=== PATIENT | male | born 1945 | race Caucasian/White ===

== ENCOUNTER 2017-05-07 17:14 | Inpatient (IN) | payer OTHER ==
[~2017-05-07] VITALS: Ht 175.3 cm; Wt 101.5 kg
[~2017-05-07 17:14] MED LIST: ALL DAY ALLERGY10 MG; BENTYL10 MG PO; CETIRIZINE HCL10 M2 PO; CYANOCOBALAM1000 MCG PO; CYMBALTA60 MG PO; Coumadin,Jantoven PO; DOCUSATE SODIU100 MG PO; ENDOCET 5-3251 EACH PO; FISH OIL-VIT D1 EACH PO; FLOMAX0.4 MG PO; FORADIL AEROLI12 MCG IH; FORADIL12 MCG IH; FUROSEMIDE40 MG PO; GABAPENTIN300 MG; GABAPENTIN300 MG PO; HEARTBURN150 MG; LASIX20 MG PO; LEVOTHYROXINE50 MCG PO; LO-DOSE ASPIRIN81 M1 PO; LOPRESSOR100 M1 PO; LOSARTAN POTAS100 MG PO; LOVENOX100 MG/1 M SC; Levaquin PO; METFORMIN HCL500 MG PO; METOPROLOL TART50 MG PO; MOBIC7.5 MG; MYSOLINE50 MG PO; NOVOLOG PE100 UNITS/ SC; PLAVIX75 MG PO; PROAIR HFA8.5 GM IH; PROTONIX40 MG PO; SENNA8.6 MG PO; SYMBICORT60 INHALAT IH; VITAMIN D2000 INTUN PO; ZOFRAN4 MG PO; Zantac PO; ZyrTEC PO
[2017-05-07 18:16] LABS: BASOPHIL COUNT 0.1 K/uL (0-0.1); EOSINOPHIL (%) 2.1 % (0-5); EOSINOPHIL COUNT 0.2 K/uL (0-0.3); IMMATURE GRANULOCYTE (%) 0.4 % (0.0-0.7); INSTRUMENT ABS NEUTROPHIL CT 7.6 K/uL; LYMPHOCYTE COUNT 2.1 K/uL (1.0-2.8); MCH 30.2 PG (29.0-34.0); MCV 91.4 FL (86-99); MEAN PLAT.VOLUME 10.9 uM^3 (9.0-12.4); MONOCYTE (%) 9.3 % (3-12); NEUTROPHIL (%) 69.1 % (45-76); NEUTROPHIL COUNT 7.6 K/uL (1.8-6.4); PLATELET COUNT 196 K/uL (156-360); RBC DIS.WIDTH-CV 15.7 % (11.8-14.6); RBC DIS.WIDTH-SD 52.2 % (39-53); RED BLOOD COUNT 5.14 M/uL (4.00-5.50)
[2017-05-07 18:22] LABS: PROTHROMBIN TIME 11.3 SEC (10.2-12.9)
[2017-05-07 18:23] LABS: CHLORIDE 106 mEq/L (99-109); POTASSIUM 4.4 mEq/L (3.7-5.4); SODIUM 140 mEq/L (136-147)
[2017-05-07 18:24] LABS: MAGNESIUM 1.8 mg/dL (1.3-2.7)
[2017-05-07 18:25] LABS: GLUCOSE 126 mg/dL (70-99)
[2017-05-07 18:27] LABS: ANION GAP 6 MEQ/L (2-14)
[2017-05-07 18:29] LABS: GFR ESTIMATE (CALCULATED) > 59 mL/min/
[2017-05-07 18:30] LABS: UREA NITROGEN (BUN) 14 mg/dL (9-23)
[2017-05-07 18:36] LABS: TROP-I INTERPRETATION NEGATIVE; TROPONIN-I 0.01 ng/mL (0.0-0.30)
[2017-05-07] MEDS ORDERED: VOLTAREN 1% GE100 GM TP (21:52)
[2017-05-07] MEDS ORDERED: SENNA PLUS TAB1 EACH PO (21:53)
[2017-05-07] MEDS ORDERED: FLONASE16 G1 BOTH NARES (21:54)
[2017-05-07] MEDS ORDERED: ARICEPT10 MG PO (21:54)
[2017-05-07] MEDS ORDERED: GABAPENTIN300 MG PO ×2 (21:55)
[2017-05-07] MEDS ORDERED: ANECREAM30 GM TP (21:56)
[2017-05-07] MEDS ORDERED: MIRALAX17 GM PO (21:57)
[2017-05-07] MEDS ORDERED: FINASTERIDE5 MG PO (21:57)
[2017-05-07] MEDS ORDERED: TYLENOL REGULA325 MG PO (21:58)
[2017-05-07] MEDS ORDERED: TRIAMCINOLONE A15 GM TP (21:58)
[2017-05-07] MEDS ORDERED: BACTRIM,SEPT1 TABLET PO (22:00)
[2017-05-08] VITALS (8 sets, daily range): BP systolic 133–210; BP diastolic 72–88
[2017-05-08 01:04] LABS: TROP-I INTERPRETATION NEGATIVE; TROPONIN-I 0.01 ng/mL (0.0-0.30)
[2017-05-08 02:23] LABS: HDL CHOLESTEROL 36 MG/DL (Desirable>=40); LDL CHOLESTEROL 143 mg/dL (Desirable<100); NON-HDL CHOLESTEROL 213 mg/dL (Desirable<160); TOTAL CHOLESTEROL 249 mg/dL (Desirable<200); TRIGLYCERIDES 349 MG/DL (Normal: <150)
[2017-05-08 07:13] LABS: TROP-I INTERPRETATION NEGATIVE; TROPONIN-I 0.02 ng/mL (0.0-0.30)
[2017-05-08 07:34] LABS: Estimated Average Glucose 154 mg/dL (70-123)
[2017-05-08 13:14] LABS: POINT-OF-CARE METER ID UU14188625
[2017-05-08 17:50] LABS: POINT-OF-CARE METER ID UU14188625
[2017-05-08 21:10] LABS: POINT-OF-CARE METER ID UU14188625
[2017-05-09 02:25] VITALS: BP 218/101
[2017-05-09 03:38] VITALS: BP 191/92
[2017-05-09 07:30] VITALS: BP 170/62
[2017-05-09 08:03] LABS: ADD MIUA? YES; BILIRUBIN NEGATIVE; BLOOD LARGE; COLOR YELLOW ((YELLOW)); GLUCOSE (STRIP) 150; KETONES NEGATIVE; LEUKOCYTES NEGATIVE; NITRITE NEGATIVE; PROTEIN (STRIP) 100; SPECIFIC GRAVITY 1.011 (1.000-1.030)
[2017-05-09 08:09] VITALS: BP 170/62
[2017-05-09 08:38] LABS: BACTERIA RARE /HPF; CALCIUM OXALATE CRYSTALS 3+ /HPF; EPITHELIAL CELLS NONE SEEN /HPF; MUCUS TRACE /LPF; RED BLOOD CELLS TNTC /HPF (0-5); UCUL ADDED? YES
[2017-05-09 09:45] LABS: POINT-OF-CARE METER ID UU13113717
[2017-05-09 11:27] VITALS: BP 178/60
[2017-05-09 12:35] LABS: POINT-OF-CARE METER ID UU14188625
[2017-05-09 15:47] VITALS: BP 152/80
[2017-05-09 17:13] LABS: POINT-OF-CARE METER ID UU14188625
[2017-05-09 22:28] LABS: POINT-OF-CARE METER ID UU13113717
[2017-05-10 04:13] VITALS: BP 110/60
[2017-05-10 07:37] LABS: POINT-OF-CARE METER ID UU14188625
[2017-05-10 07:58] VITALS: BP 163/70
[2017-05-10 11:22] VITALS: BP 172/79; BP 180/67
[2017-05-10 12:09] LABS: POINT-OF-CARE METER ID UU14188625
[2017-05-10 15:11] VITALS: BP 138/90
[2017-05-10 16:27] LABS: POINT-OF-CARE METER ID UU13113717
[2017-05-10 20:05] VITALS: BP 138/89
[2017-05-10 21:02] LABS: POINT-OF-CARE METER ID UU13113717
[2017-05-11 00:16] VITALS: BP 152/79
[2017-05-11 03:52] VITALS: BP 158/79
[2017-05-11 07:48] VITALS: BP 208/77
[2017-05-11 10:08] VITALS: BP 158/62
[2017-05-11 16:52] LABS: POINT-OF-CARE METER ID UU13113717
[2017-05-11 17:38] VITALS: BP 158/90
[2017-05-12 07:13] VITALS: BP 180/88
[2017-05-12 08:03] LABS: POINT-OF-CARE METER ID UU13113717
[2017-05-12 10:47] LABS: HEMATOCRIT 50.7 % (38.0-50.0); MCH 31.7 PG (29.0-34.0); MCHC 33.7 G/DL (30.0-36.0); MCV 94.1 FL (86-99); MEAN PLAT.VOLUME 10.6 uM^3 (9.0-12.4); PLATELET COUNT 192 K/uL (156-360); RBC DIS.WIDTH-CV 16.3 % (11.8-14.6); RBC DIS.WIDTH-SD 54.7 % (39-53); RED BLOOD COUNT 5.39 M/uL (4.00-5.50); WHITE BLOOD COUNT 12.6 K/uL (4.1-10.2)
[2017-05-12 11:17] LABS: ANION GAP 10 MEQ/L (2-14); CHLORIDE 104 MEQ/L (99-109); GFR ESTIMATE (CALCULATED) > 59 mL/min/; GLUCOSE 145 mg/dL (70-99); POTASSIUM 4.2 MEQ/L (3.7-5.4); SAMPLE HEMOLYSIS CHECK 0; SAMPLE ICTERIC CHECK 0; SAMPLE LIPEMIA CHECK 0; SODIUM 142 MEQ/L (136-147); UREA NITROGEN (BUN) 17 mg/dL (9-23)
[2017-05-12 16:05] VITALS: BP 137/80
[2017-05-12 17:43] LABS: POINT-OF-CARE METER ID UU14188625
[2017-05-12 21:40] VITALS: BP 161/77
[2017-05-12 23:42] VITALS: BP 180/73
[2017-05-13 04:00] VITALS: BP 176/72
[2017-05-13 08:14] LABS: POINT-OF-CARE METER ID UU14188625
[2017-05-13 08:19] VITALS: BP 158/60
[2017-05-13 12:04] LABS: POINT-OF-CARE METER ID UU14188625
[2017-05-13 23:48] VITALS: BP 133/71
[2017-05-14 06:06] LABS: BASOPHIL COUNT 0.1 K/uL (0-0.1); EOSINOPHIL (%) 1.8 % (0-5); EOSINOPHIL COUNT 0.3 K/uL (0-0.3); IMMATURE GRANULOCYTE (%) 0.5 % (0.0-0.7); IMMATURE GRANULOCYTE COUNT 0.1 K/uL; INSTRUMENT ABS NEUTROPHIL CT 10.4 K/uL; LYMPHOCYTE COUNT 1.6 K/uL (1.0-2.8); MCH 31.4 PG (29.0-34.0); MCHC 34.2 G/DL (30.0-36.0); MCV 91.7 FL (86-99); MONOCYTE (%) 9.4 % (3-12); MONOCYTE COUNT 1.3 K/uL (0-0.8); NEUTROPHIL (%) 76.3 % (45-76); NEUTROPHIL COUNT 10.4 K/uL (1.8-6.4); RBC DIS.WIDTH-CV 16.3 % (11.8-14.6); RBC DIS.WIDTH-SD 54.1 % (39-53); RED BLOOD COUNT 5.45 M/uL (4.00-5.50); WHITE BLOOD COUNT 13.7 K/uL (4.1-10.2)
[2017-05-14 06:43] LABS: ANION GAP 14 MEQ/L (2-14); CHLORIDE 107 MEQ/L (99-109); GFR ESTIMATE (CALCULATED) > 59 mL/min/; GLUCOSE 156 mg/dL (70-99); POTASSIUM 4.3 MEQ/L (3.7-5.4); SAMPLE HEMOLYSIS CHECK 0; SAMPLE ICTERIC CHECK 0; SAMPLE LIPEMIA CHECK 0; SODIUM 141 MEQ/L (136-147); UREA NITROGEN (BUN) 25 mg/dL (9-23)
[2017-05-14 07:17] LABS: MEAN PLAT.VOLUME 11.5 uM^3 (9.0-12.4); PLAT.SUFFICIENCY ADEQUATE; PLATELET COUNT 183 K/uL (156-360)
[2017-05-14 07:53] VITALS: BP 183/88
[2017-05-14 10:49] LABS: ADD MIUA? YES; BILIRUBIN NEGATIVE; BLOOD MODERATE; COLOR AMBER ((YELLOW)); GLUCOSE (STRIP) 50; KETONES 20; LEUKOCYTES MODERATE; NITRITE NEGATIVE; PROTEIN (STRIP) 30; SPECIFIC GRAVITY 1.025 (1.000-1.030); UROBILINOGEN 0.2 MG/DL (0.2-1.0)
[2017-05-14 11:57] LABS: POINT-OF-CARE METER ID UU14188625
[2017-05-14 12:02] LABS: RED BLOOD CELLS 15-20 /HPF (0-5)
[2017-05-14 12:03] LABS: BACTERIA 1+ /HPF; CASTS NONE SEEN /LPF; EPITHELIAL CELLS 1+ /HPF; MUCUS 3+ /LPF; UCUL ADDED? YES; WHITE BLOOD CELLS 40-50 /HPF (0-5)
[2017-05-14 12:04] LABS: CRYSTALS NONE SEEN
[2017-05-14 16:00] VITALS: BP 168/71
[2017-05-14 17:10] LABS: POINT-OF-CARE METER ID UU14188625
[2017-05-15 00:53] VITALS: BP 190/78
[2017-05-15 07:07] LABS: ANION GAP 12 MEQ/L (2-14); CHLORIDE 112 MEQ/L (99-109); POTASSIUM 4.1 MEQ/L (3.7-5.4); SAMPLE HEMOLYSIS CHECK 0; SAMPLE ICTERIC CHECK 0; SAMPLE LIPEMIA CHECK 0; SODIUM 146 MEQ/L (136-147)
[2017-05-15 07:08] LABS: POINT-OF-CARE METER ID UU13113717
[2017-05-15 07:10] LABS: EOSINOPHIL (%) 0.9 % (0-5); EOSINOPHIL COUNT 0.1 K/uL (0-0.3); HEMATOCRIT 46.5 % (38.0-50.0); IMMATURE GRANULOCYTE (%) 0.6 % (0.0-0.7); IMMATURE GRANULOCYTE COUNT 0.1 K/uL; INSTRUMENT ABS NEUTROPHIL CT 10.2 K/uL; LYMPHOCYTE COUNT 1.7 K/uL (1.0-2.8); MCH 31.9 PG (29.0-34.0); MCHC 34.4 G/DL (30.0-36.0); MCV 92.6 FL (86-99); MEAN PLAT.VOLUME 11.6 uM^3 (9.0-12.4); MONOCYTE (%) 12.3 % (3-12); MONOCYTE COUNT 1.7 K/uL (0-0.8); NEUTROPHIL (%) 73.4 % (45-76); NEUTROPHIL COUNT 10.2 K/uL (1.8-6.4); PLATELET COUNT 223 K/uL (156-360); RBC DIS.WIDTH-CV 16.1 % (11.8-14.6); RBC DIS.WIDTH-SD 54.4 % (39-53); RED BLOOD COUNT 5.02 M/uL (4.00-5.50); WHITE BLOOD COUNT 13.8 K/uL (4.1-10.2)
[2017-05-15 07:12] LABS: GFR ESTIMATE (CALCULATED) > 59 mL/min/; GLUCOSE 164 mg/dL (70-99); UREA NITROGEN (BUN) 33 mg/dL (9-23)
[2017-05-15 07:38] VITALS: BP 141/73
[2017-05-15 07:45] VITALS: BP 142/68
[2017-05-15 11:12] VITALS: BP 144/66
[2017-05-15 12:27] LABS: POINT-OF-CARE METER ID UU13113717
[2017-05-15 12:53] LABS: BASE EXCESS 3.5 mEq/L (-3 to +3); BICARBONATE 26.8 mEq/L (22-26); CARBOXY HGB 2.7 % (0-5); METHEMOGLOBIN 1.5 % (0-1.5); PCO2 36 mm Hg (35-45); PO2 75 mm Hg (80-100); pH 7.48 (7.35-7.45)
[2017-05-15 12:54] LABS: COMMENTS - BLOOD GASES C+; DEVICE RA; MECHANICAL RATE 18 resp/min; SITE LR
[2017-05-15 16:38] VITALS: BP 175/71
[2017-05-15 17:23] LABS: POINT-OF-CARE METER ID UU13113717
[2017-05-16 00:47] VITALS: BP 176/75
[2017-05-16 07:42] VITALS: BP 193/82
[2017-05-16 07:45] VITALS: BP 132/84
[2017-05-16 08:23] LABS: POINT-OF-CARE METER ID UU13113717
[2017-05-16 08:52] LABS: HEMATOCRIT 48.7 % (38.0-50.0); MCH 30.5 PG (29.0-34.0); MCHC 31.6 G/DL (30.0-36.0); MCV 96.4 FL (86-99); MEAN PLAT.VOLUME 11.4 uM^3 (9.0-12.4); PLATELET COUNT 204 K/uL (156-360); RBC DIS.WIDTH-CV 16.1 % (11.8-14.6); RBC DIS.WIDTH-SD 57.1 % (39-53); RED BLOOD COUNT 5.05 M/uL (4.00-5.50); WHITE BLOOD COUNT 11.1 K/uL (4.1-10.2)
[2017-05-16 11:16] VITALS: BP 132/68
[2017-05-16 16:00] VITALS: BP 142/70
[2017-05-16 17:10] LABS: POINT-OF-CARE METER ID UU13113717
[2017-05-17 00:17] VITALS: BP 192/79
[2017-05-17 03:35] VITALS: BP 146/96
[2017-05-17 06:55] LABS: BASOPHIL COUNT 0.1 K/uL (0-0.1); EOSINOPHIL (%) 2.3 % (0-5); EOSINOPHIL COUNT 0.3 K/uL (0-0.3); HEMATOCRIT 49.1 % (38.0-50.0); IMMATURE GRANULOCYTE (%) 0.5 % (0.0-0.7); IMMATURE GRANULOCYTE COUNT 0.1 K/uL; INSTRUMENT ABS NEUTROPHIL CT 7.9 K/uL; LYMPHOCYTE COUNT 1.6 K/uL (1.0-2.8); MCH 30.5 PG (29.0-34.0); MCHC 31.8 G/DL (30.0-36.0); MCV 96.1 FL (86-99); MEAN PLAT.VOLUME 10.8 uM^3 (9.0-12.4); MONOCYTE (%) 10.5 % (3-12); MONOCYTE COUNT 1.2 K/uL (0-0.8); NEUTROPHIL (%) 71.8 % (45-76); NEUTROPHIL COUNT 7.9 K/uL (1.8-6.4); PLATELET COUNT 217 K/uL (156-360); RBC DIS.WIDTH-CV 15.9 % (11.8-14.6); RBC DIS.WIDTH-SD 56.7 % (39-53); RED BLOOD COUNT 5.11 M/uL (4.00-5.50)
[2017-05-17 07:17] LABS: ANION GAP 12 MEQ/L (2-14); CHLORIDE 114 MEQ/L (99-109); GFR ESTIMATE (CALCULATED) > 59 mL/min/; GLUCOSE 158 mg/dL (70-99); POTASSIUM 4.3 MEQ/L (3.7-5.4); SAMPLE HEMOLYSIS CHECK 0; SAMPLE ICTERIC CHECK 0; SAMPLE LIPEMIA CHECK 0; SODIUM 147 MEQ/L (136-147); UREA NITROGEN (BUN) 32 mg/dL (9-23)
[2017-05-17 07:25] LABS: POINT-OF-CARE METER ID UU14188625
[2017-05-17 07:33] VITALS: BP 160/79
[2017-05-17 15:08] VITALS: BP 158/73
[2017-05-17 16:29] LABS: POINT-OF-CARE METER ID UU14188625
[2017-05-17 23:27] VITALS: BP 114/66
[2017-05-18 07:05] VITALS: BP 164/74
[2017-05-18 07:05] LABS: POINT-OF-CARE METER ID UU14188625
[2017-05-18] MEDS ORDERED: ATORVASTATIN CA40 MG PO (10:17)
[2017-05-18] MEDS ORDERED: MYCOSTATIN 100,60 ML PO (10:17)
[2017-05-18] MEDS ORDERED: DOXYCYCLINE HY100 M3 PO (10:17)
[2017-05-18 11:18] LABS: POINT-OF-CARE METER ID UU13113717
== END 2017-05-18 13:50 | DRG 65 ==
LOC: EME 17:14 → ENRESERV 22:05 → EDOF 22:05 → 5SOUTH 22:05 → ENRESERV 22:10 → EDOF 05-08 00:05 → ENRESERV 05-08 00:07 → 5SOUTH 05-08 00:07
PROVIDERS: Emergency Medicine; Hospitalist; Physician Assistant; Physician Assistant Medical
DX: I63.9 Cerebral infarction, unspecified (principal); C67.9 Malignant neoplasm of bladder, unspecified; N18.3 Chronic kidney disease, stage 3 (moderate); E11.22 Type 2 diabetes mellitus with diabetic chronic kidney disease; J44.9 Chronic obstructive pulmonary disease, unspecified; R29.810 Facial weakness; E66.9 Obesity, unspecified; I25.119 Atherosclerotic heart disease of native coronary artery with unspecified angina pectoris; G20 Parkinson's disease; K21.9 Gastro-esophageal reflux disease without esophagitis; I12.9 Hypertensive chronic kidney disease with stage 1 through stage 4 chronic kidney disease, or unspecified chronic kidney disease; R29.707 NIHSS score 7; R13.10 Dysphagia, unspecified; N39.0 Urinary tract infection, site not specified; G47.33 Obstructive sleep apnea (adult) (pediatric); E03.9 Hypothyroidism, unspecified; F41.9 Anxiety disorder, unspecified; K40.90 Unilateral inguinal hernia, without obstruction or gangrene, not specified as recurrent; F32.9 Major depressive disorder, single episode, unspecified; N40.1 Benign prostatic hyperplasia with lower urinary tract symptoms; K56.7 Ileus, unspecified; K57.30 Diverticulosis of large intestine without perforation or abscess without bleeding; B37.0 Candidal stomatitis; F17.200 Nicotine dependence, unspecified, uncomplicated; I77.811 Abdominal aortic ectasia; N28.1 Cyst of kidney, acquired; M19.90 Unspecified osteoarthritis, unspecified site; M79.7 Fibromyalgia; Z79.899 Other long term (current) drug therapy; I25.2 Old myocardial infarction; Z79.82 Long term (current) use of aspirin; Z79.51 Long term (current) use of inhaled steroids; Z91.19 Patient's noncompliance with other medical treatment and regimen; Z90.49 Acquired absence of other specified parts of digestive tract; Q89.09 Congenital malformations of spleen; Z86.73 Personal history of transient ischemic attack (TIA), and cerebral infarction without residual deficits; Z95.1 Presence of aortocoronary bypass graft; Z79.4 Long term (current) use of insulin; Z79.02 Long term (current) use of antithrombotics/antiplatelets; Z68.1 Body mass index [BMI] 19.9 or less, adult; Z85.51 Personal history of malignant neoplasm of bladder; Z80.42 Family history of malignant neoplasm of prostate; Z82.49 Family history of ischemic heart disease and other diseases of the circulatory system
CPT/HCPCS: 36600; 70450; 70551; 71010; 71020; 74000; 74020; 74176; 80048; 80061; 81003; 82140; 82803; 82948; 83036; 83735; 84484; 85025; 85027; 85610; 85730; 87077; 87086; 87186; 92526 GN; 92610 GN; 93005; 93306; 93880; 94640; 95819; 97530 GP; 99202; 99281; 99285; J0360; J1650; J1815; J2405; J7030; S0028

== ENCOUNTER 2017-07-24 09:52 | Observation (INO) | payer OTHER ==
[~2017-07-24] VITALS: Ht 175.3 cm; Wt 111.0 kg
[~2017-07-24 09:52] MED LIST changes: +ANECREAM30 GM TP; +ARICEPT10 MG PO; +ATORVASTATIN CA40 MG PO; +BACTRIM,SEPT1 TABLET PO; +DOXYCYCLINE HY100 M3 PO; +FINASTERIDE5 MG PO; +FLONASE16 G1 BOTH NARES; +FUROSEMIDE20 MG PO; -FUROSEMIDE40 MG PO; -LEVOTHYROXINE50 MCG PO; +METFORMIN HCL500 M1 PO; -METFORMIN HCL500 MG PO; +MIRALAX17 GM PO; +MYCOSTATIN 100,60 ML PO; +SENNA PLUS TAB1 EACH PO; +SYNTHROID100 MCG PO; +TRIAMCINOLONE A15 GM TP; +TYLENOL EXTRA500 MG PO; +VOLTAREN 1% GE100 GM TP
[2017-07-24 10:44] LABS: EOSINOPHIL (%) 1.1 % (0-5); EOSINOPHIL COUNT 0.1 K/uL (0-0.3); HEMATOCRIT 40.1 % (38.0-50.0); IMMATURE GRANULOCYTE (%) 0.6 % (0.0-0.7); IMMATURE GRANULOCYTE COUNT 0.1 K/uL; INSTRUMENT ABS NEUTROPHIL CT 8.9 K/uL; MCH 31.3 PG (29.0-34.0); MCHC 33.7 G/DL (30.0-36.0); MCV 92.8 FL (86-99); MEAN PLAT.VOLUME 10.4 uM^3 (9.0-12.4); MONOCYTE (%) 7.7 % (3-12); MONOCYTE COUNT 0.9 K/uL (0-0.8); NEUTROPHIL (%) 81.4 % (45-76); NEUTROPHIL COUNT 8.9 K/uL (1.8-6.4); PLATELET COUNT 171 K/uL (156-360); RBC DIS.WIDTH-CV 14.9 % (11.8-14.6); RBC DIS.WIDTH-SD 50.9 % (39-53); RED BLOOD COUNT 4.32 M/uL (4.00-5.50)
[2017-07-24 10:50] LABS: INTER. NORMALIZED RATIO 1.1; PROTHROMBIN TIME 12.9 SEC (10.2-12.9)
[2017-07-24 10:52] LABS: PTT 25.8 SEC (25-37)
[2017-07-24 10:54] LABS: CHLORIDE 102 mEq/L (99-109); POTASSIUM 3.8 mEq/L (3.7-5.4); SODIUM 138 mEq/L (136-147)
[2017-07-24 10:57] LABS: GLUCOSE 255 mg/dL (70-99)
[2017-07-24 10:58] LABS: ANION GAP 9 MEQ/L (2-14); TOTAL BILIRUBIN 0.8 mg/dL (0.0-1.0)
[2017-07-24 11:00] LABS: ALKALINE PHOSPHATASE 83 IU/L (3-129); GFR ESTIMATE (CALCULATED) > 59 mL/min/ (58.99-99999)
[2017-07-24 11:01] LABS: UREA NITROGEN (BUN) 23 mg/dL (9-23)
[2017-07-24 11:06] LABS: TROP-I INTERPRETATION NEGATIVE; TROPONIN-I < 0.01 ng/mL (0.0-0.30)
[2017-07-24] MEDS ORDERED: CETIRIZINE HCL10 M2 PO (16:16)
[2017-07-24 16:59] LABS: TROP-I INTERPRETATION NEGATIVE; TROPONIN-I < 0.01 ng/mL (0.0-0.30)
[2017-07-24 17:00] VITALS: BP 106/56; BP 133/63; BP 138/63
[2017-07-24 17:23] LABS: POINT-OF-CARE METER ID UU14162513
[2017-07-24 18:25] LABS: ADD MIUA? YES; BILIRUBIN NEGATIVE; BLOOD NEGATIVE; COLOR YELLOW ((YELLOW)); GLUCOSE (STRIP) 50; KETONES NEGATIVE; LEUKOCYTES LARGE; NITRITE NEGATIVE; PROTEIN (STRIP) 100; SPECIFIC GRAVITY 1.014 (1.000-1.030)
[2017-07-24 18:37] LABS: CASTS NONE SEEN /LPF; EPITHELIAL CELLS NONE SEEN /HPF; MUCUS NONE SEEN /LPF
[2017-07-24 18:38] LABS: BACTERIA 4+ /HPF; CRYSTALS PRESENT; RED BLOOD CELLS NONE SEEN /HPF (0-5); WHITE BLOOD CELLS 0-5 /HPF (0-5)
[2017-07-24 18:39] LABS: AMORPHOUS PHOSPHATE CRYSTALS 2+
[2017-07-24 20:00] VITALS: BP 151/68
[2017-07-24 22:55] LABS: TROP-I INTERPRETATION NEGATIVE; TROPONIN-I < 0.01 ng/mL (0.0-0.30)
[2017-07-25] VITALS (7 sets, daily range): BP systolic 146–184; BP diastolic 63–88
[2017-07-25 07:54] LABS: POINT-OF-CARE METER ID UU13113831
[2017-07-25 09:31] LABS: C DIFF TOXIN NEGATIVE (NEGATIVE)
[2017-07-25 09:32] LABS: PROBE CHECK PASS; SPECIMEN PROCESSING CONTROL PASS
[2017-07-25 12:06] LABS: POINT-OF-CARE METER ID UU14162513
[2017-07-25 17:49] LABS: POINT-OF-CARE METER ID UU14162513
[2017-07-26 04:51] VITALS: BP 160/82
[2017-07-26 07:54] LABS: POINT-OF-CARE METER ID UU14162513
[2017-07-26 08:45] VITALS: BP 149/67
[2017-07-26 11:21] VITALS: BP 135/65
[2017-07-26 12:14] LABS: POINT-OF-CARE METER ID UU14162513
[2017-07-26] MEDS ORDERED: CEFTIN250 MG PO (13:34)
[2017-07-26 15:21] VITALS: BP 155/71
== END 2017-07-26 17:31 | disposition home or self-care (01) ==
LOC: EME 09:52 → EDOF 12:36 → 5WEST 12:36 → EDOF 12:36 → ENRESERV 12:45 → 5WEST 16:45 → ENPENDDIS 07-26 13:38 → 5WEST 07-26 17:31
PROVIDERS: Emergency Medicine; Internal Medicine; Nurse Practitioner Adult Health
DX: R55 Syncope and collapse (principal); N39.0 Urinary tract infection, site not specified; I25.10 Atherosclerotic heart disease of native coronary artery without angina pectoris; I25.2 Old myocardial infarction; J44.9 Chronic obstructive pulmonary disease, unspecified; G47.33 Obstructive sleep apnea (adult) (pediatric); Z87.891 Personal history of nicotine dependence; Z86.73 Personal history of transient ischemic attack (TIA), and cerebral infarction without residual deficits; K21.9 Gastro-esophageal reflux disease without esophagitis; K44.9 Diaphragmatic hernia without obstruction or gangrene; F32.9 Major depressive disorder, single episode, unspecified; F41.9 Anxiety disorder, unspecified; N40.1 Benign prostatic hyperplasia with lower urinary tract symptoms; R33.8 Other retention of urine; E11.22 Type 2 diabetes mellitus with diabetic chronic kidney disease; N18.3 Chronic kidney disease, stage 3 (moderate); E03.9 Hypothyroidism, unspecified; Z91.81 History of falling; Z95.1 Presence of aortocoronary bypass graft; Z85.51 Personal history of malignant neoplasm of bladder; Z90.49 Acquired absence of other specified parts of digestive tract; Z88.8 Allergy status to other drugs, medicaments and biological substances; Z79.82 Long term (current) use of aspirin
CPT/HCPCS: 70450; 71010; 80053; 81003; 82948; 84484; 85025; 85610; 85730; 87493; 93005; 99202; G0378; G8978 GP CI; G8979 GP CH; G8980 GP CI; G8987 GO CI; G8988 GO CH; G8989 GO CI; J0696; J1650; J1815; J7030

== ENCOUNTER 2017-08-31 16:19 | Emergency (ER) | payer OTHER ==
[~2017-08-31] VITALS: Ht 175.3 cm; Wt 110.0 kg
[~2017-08-31 16:19] MED LIST changes: +CEFTIN250 MG PO
[2017-09-01 00:21] VITALS: BP 145/57
== END 2017-09-01 00:22 | disposition home or self-care (01) ==
LOC: EME 16:19
DX: R31.9 Hematuria, unspecified (principal); Z87.891 Personal history of nicotine dependence; Z79.82 Long term (current) use of aspirin; Z85.51 Personal history of malignant neoplasm of bladder; M79.7 Fibromyalgia; J44.9 Chronic obstructive pulmonary disease, unspecified; G47.33 Obstructive sleep apnea (adult) (pediatric); F41.9 Anxiety disorder, unspecified; F32.9 Major depressive disorder, single episode, unspecified; E78.5 Hyperlipidemia, unspecified; I10 Essential (primary) hypertension; E11.9 Type 2 diabetes mellitus without complications; E53.8 Deficiency of other specified B group vitamins; Z95.1 Presence of aortocoronary bypass graft; Z86.73 Personal history of transient ischemic attack (TIA), and cerebral infarction without residual deficits
CPT/HCPCS: 87077; 87086; 87186; 99281; 99284; J3010

== ENCOUNTER 2017-09-02 16:58 | Inpatient (IN) | payer OTHER ==
[~2017-09-02] VITALS: Ht 175.3 cm; Wt 110.6 kg
[2017-09-02 17:56] LABS: APPEARANCE CLOUDY ((CLEAR)); BILIRUBIN NEGATIVE; BLOOD MODERATE; COLOR AMBER ((YELLOW)); GLUCOSE (STRIP) 150; KETONES NEGATIVE; LEUKOCYTES LARGE; NITRITE POSITIVE; PROTEIN (STRIP) 100; SPECIFIC GRAVITY 1.019 (1.000-1.030); UROBILINOGEN 0.2 MG/DL (0.2-1.0)
[2017-09-02 18:03] LABS: BACTERIA 3+ /HPF; CALCIUM OXALATE CRYSTALS 3+ /HPF; EPITHELIAL CELLS NONE SEEN /HPF; MUCUS 2+ /LPF; RED BLOOD CELLS 30-40 /HPF (0-5); UCUL ADDED? YES
[2017-09-02 18:35] LABS: BASOPHIL (%) 0.4 % (0-1); BASOPHIL COUNT 0.1 K/uL (0-0.1); EOSINOPHIL (%) 0.1 % (0-5); HEMATOCRIT 45.4 % (38.0-50.0); HEMOGLOBIN 15.2 G/DL (12.5-16.6); IMMATURE GRANULOCYTE (%) 0.6 % (0.0-0.7); LYMPHOCYTE (%) 9.1 % (15-42); LYMPHOCYTE COUNT 1.1 K/uL (1.0-2.8); MCH 31.3 PG (29.0-34.0); MCHC 33.5 G/DL (30.0-36.0); MCV 93.6 FL (86-99); MONOCYTE (%) 11.4 % (3-12); MONOCYTE COUNT 1.4 K/uL (0-0.8); NEUTROPHIL (%) 78.4 % (45-76); NEUTROPHIL COUNT 9.5 K/uL (1.8-6.4); RBC DIS.WIDTH-CV 15.2 % (11.8-14.6); RBC DIS.WIDTH-SD 52.1 % (39-53); RED BLOOD COUNT 4.85 M/uL (4.00-5.50); WHITE BLOOD COUNT 12.2 K/uL (4.1-10.2)
[2017-09-02 18:51] LABS: ALBUMIN 3.6 g/dL (3.2-4.8); CHLORIDE 105 mEq/L (99-109); POTASSIUM 3.6 mEq/L (3.7-5.4); SODIUM 141 mEq/L (136-147)
[2017-09-02 18:53] LABS: GLUCOSE 162 mg/dL (70-99); TOTAL PROTEIN 6.9 g/dL (6.4-8.3)
[2017-09-02 18:55] LABS: TOTAL BILIRUBIN 1.1 mg/dL (0.0-1.0)
[2017-09-02 18:57] LABS: ALKALINE PHOSPHATASE 108 IU/L (3-129); CREATININE 1.1 mg/dL (0.6-1.3); GFR ESTIMATE (CALCULATED) > 59 mL/min/ (58.99-99999)
[2017-09-02 18:58] LABS: UREA NITROGEN (BUN) 17 mg/dL (9-23)
[2017-09-02 18:59] LABS: TROP-I INTERPRETATION NEGATIVE; TROPONIN-I 0.02 ng/mL (0.0-0.30)
[2017-09-02 18:59] LABS: AST (GOT) 11 IU/L (2-34)
[2017-09-02 19:00] LABS: ALT (GPT) 9 IU/L (3-49); LIPASE 11 U/L (1.0-51.0)
[2017-09-02 19:02] LABS: INTER. NORMALIZED RATIO 1.2
[2017-09-02 19:04] LABS: PTT 23.4 SEC (25-37)
[2017-09-02 19:15] LABS: PLAT.SUFFICIENCY ADEQUATE; PLATELET CLUMPS PRESENT - PLATELET COUNT APPEARS ADQ.; PLATELET COUNT UNABLE TO REPORT K/uL (156-360)
[2017-09-03 01:44] LABS: TROP-I INTERPRETATION NEGATIVE; TROPONIN-I 0.03 ng/mL (0.0-0.30)
[2017-09-03 02:00] LABS: HDL CHOLESTEROL 51 MG/DL (Desirable>=40); LDL CHOLESTEROL 88 mg/dL (Desirable<100); NON-HDL CHOLESTEROL 111 mg/dL (Desirable<160); TOTAL CHOLESTEROL 162 mg/dL (Desirable<200); TRIGLYCERIDES 115 MG/DL (Normal: <150)
[2017-09-03 05:43] LABS: BASOPHIL (%) 0.4 % (0-1); EOSINOPHIL (%) 0.1 % (0-5); HEMATOCRIT 37.4 % (38.0-50.0); IMMATURE GRANULOCYTE (%) 0.5 % (0.0-0.7); LYMPHOCYTE (%) 11.6 % (15-42); LYMPHOCYTE COUNT 1.2 K/uL (1.0-2.8); MCH 30.9 PG (29.0-34.0); MCHC 33.4 G/DL (30.0-36.0); MCV 92.3 FL (86-99); MONOCYTE (%) 11.6 % (3-12); MONOCYTE COUNT 1.2 K/uL (0-0.8); NEUTROPHIL (%) 75.8 % (45-76); NEUTROPHIL COUNT 8.1 K/uL (1.8-6.4); RBC DIS.WIDTH-CV 15.1 % (11.8-14.6); RED BLOOD COUNT 4.05 M/uL (4.00-5.50); WHITE BLOOD COUNT 10.7 K/uL (4.1-10.2)
[2017-09-03 05:44] LABS: HEMOGLOBIN 12.5 G/DL (12.5-16.6); PLATELET COUNT 143 K/uL (156-360)
[2017-09-03 06:09] LABS: CHLORIDE 108 MEQ/L (99-109); CREATININE 0.9 MG/DL (0.6-1.3); GFR ESTIMATE (CALCULATED) > 59 mL/min/ (58.99-99999); GLUCOSE 150 mg/dL (70-99); POTASSIUM 3.8 MEQ/L (3.7-5.4); SODIUM 140 MEQ/L (136-147); UREA NITROGEN (BUN) 15 mg/dL (9-23)
[2017-09-03 08:00] VITALS: BP 160/90
[2017-09-03 11:20] LABS: HEMOGLOBIN A1c (GLYCOHEMOGLOB) 6.3 % (Below 5.7)
[2017-09-03 11:30] VITALS: BP 156/81
[2017-09-03 16:00] VITALS: BP 160/78
[2017-09-03 19:40] VITALS: BP 178/81
[2017-09-04] VITALS: BP 135/79
[2017-09-04 04:06] VITALS: BP 164/69
[2017-09-04 06:37] LABS: HEMOGLOBIN 12.2 G/DL (12.5-16.6); MCH 30.9 PG (29.0-34.0); MCV 93.7 FL (86-99); PLATELET COUNT 130 K/uL (156-360); RBC DIS.WIDTH-CV 15.1 % (11.8-14.6); RBC DIS.WIDTH-SD 52.4 % (39-53); RED BLOOD COUNT 3.95 M/uL (4.00-5.50); WHITE BLOOD COUNT 8.7 K/uL (4.1-10.2)
[2017-09-04 07:01] LABS: CHLORIDE 109 MEQ/L (99-109); POTASSIUM 3.8 MEQ/L (3.7-5.4); SODIUM 141 MEQ/L (136-147)
[2017-09-04 07:06] LABS: CREATININE 0.9 MG/DL (0.6-1.3); GFR ESTIMATE (CALCULATED) > 59 mL/min/ (58.99-99999); GLUCOSE 134 mg/dL (70-99); UREA NITROGEN (BUN) 17 mg/dL (9-23)
[2017-09-04 07:28] VITALS: BP 158/67
[2017-09-04 11:34] VITALS: BP 161/69
[2017-09-04 16:03] VITALS: BP 164/72
[2017-09-04 20:00] VITALS: BP 198/81
[2017-09-05] VITALS: BP 167/72
[2017-09-05 04:04] VITALS: BP 158/66
[2017-09-05 07:44] VITALS: BP 168/80
[2017-09-05 15:39] VITALS: BP 156/72
[2017-09-05 23:56] VITALS: BP 172/88
[2017-09-06 06:40] LABS: BASOPHIL (%) 0.4 % (0-1); EOSINOPHIL (%) 5.1 % (0-5); EOSINOPHIL COUNT 0.4 K/uL (0-0.3); HEMATOCRIT 38.1 % (38.0-50.0); HEMOGLOBIN 12.7 G/DL (12.5-16.6); IMMATURE GRANULOCYTE (%) 0.4 % (0.0-0.7); LYMPHOCYTE (%) 15.6 % (15-42); LYMPHOCYTE COUNT 1.2 K/uL (1.0-2.8); MCHC 33.3 G/DL (30.0-36.0); MCV 92.9 FL (86-99); MONOCYTE (%) 9.5 % (3-12); MONOCYTE COUNT 0.7 K/uL (0-0.8); NEUTROPHIL COUNT 5.1 K/uL (1.8-6.4); PLATELET COUNT 168 K/uL (156-360); RBC DIS.WIDTH-SD 51.3 % (39-53); WHITE BLOOD COUNT 7.4 K/uL (4.1-10.2)
[2017-09-06 07:02] LABS: CHLORIDE 108 MEQ/L (99-109); CREATININE 0.8 MG/DL (0.6-1.3); GFR ESTIMATE (CALCULATED) > 59 mL/min/ (58.99-99999); GLUCOSE 132 mg/dL (70-99); POTASSIUM 3.6 MEQ/L (3.7-5.4); SODIUM 142 MEQ/L (136-147); UREA NITROGEN (BUN) 17 mg/dL (9-23)
[2017-09-06 07:30] VITALS: BP 115/86
[2017-09-06 15:45] VITALS: BP 154/79
[2017-09-07 00:10] VITALS: BP 152/59
[2017-09-07 06:26] LABS: BASOPHIL (%) 0.6 % (0-1); BASOPHIL COUNT 0.1 K/uL (0-0.1); EOSINOPHIL (%) 3.7 % (0-5); EOSINOPHIL COUNT 0.3 K/uL (0-0.3); HEMATOCRIT 39.5 % (38.0-50.0); HEMOGLOBIN 12.9 G/DL (12.5-16.6); IMMATURE GRANULOCYTE (%) 0.6 % (0.0-0.7); LYMPHOCYTE (%) 15.2 % (15-42); LYMPHOCYTE COUNT 1.4 K/uL (1.0-2.8); MCHC 32.7 G/DL (30.0-36.0); MCV 91.9 FL (86-99); MONOCYTE (%) 8.2 % (3-12); MONOCYTE COUNT 0.7 K/uL (0-0.8); NEUTROPHIL (%) 71.7 % (45-76); NEUTROPHIL COUNT 6.4 K/uL (1.8-6.4); PLATELET COUNT 196 K/uL (156-360); RBC DIS.WIDTH-CV 14.8 % (11.8-14.6); RBC DIS.WIDTH-SD 50.2 % (39-53)
[2017-09-07 06:50] LABS: CHLORIDE 104 MEQ/L (99-109); CREATININE 0.8 MG/DL (0.6-1.3); GFR ESTIMATE (CALCULATED) > 59 mL/min/ (58.99-99999); GLUCOSE 142 mg/dL (70-99); POTASSIUM 3.7 MEQ/L (3.7-5.4); SODIUM 142 MEQ/L (136-147); UREA NITROGEN (BUN) 20 mg/dL (9-23)
[2017-09-07 07:42] VITALS: BP 167/74
[2017-09-07 16:05] VITALS: BP 147/80
[2017-09-08 00:06] VITALS: BP 134/76
[2017-09-08 07:36] VITALS: BP 136/92
[2017-09-08] MEDS ORDERED: LEVAQUIN500 MG PO (09:05)
== END 2017-09-08 14:20 | disposition home or self-care (01) | DRG 698 ==
LOC: EME 16:58 → 5SOUTH 22:53 → EDOF 22:53 → ENRESERV 22:58 → 2EASTP 09-03 01:28 → ENRESERV 09-03 01:40 → 5SOUTH 09-03 01:42
PROVIDERS: Emergency Medicine; Hospitalist; Physician Assistant Medical; Student in an Organized Health Care Education/Training Program
DX: T83.511A Infection and inflammatory reaction due to indwelling urethral catheter, initial encounter (principal); Y84.6 Urinary catheterization as the cause of abnormal reaction of the patient, or of later complication, without mention of misadventure at the time of the procedure; A41.9 Sepsis, unspecified organism; N10 Acute pyelonephritis; B96.5 Pseudomonas (aeruginosa) (mallei) (pseudomallei) as the cause of diseases classified elsewhere; B96.4 Proteus (mirabilis) (morganii) as the cause of diseases classified elsewhere; N34.2 Other urethritis; G93.41 Metabolic encephalopathy; E87.2 Acidosis; H10.9 Unspecified conjunctivitis; I13.0 Hypertensive heart and chronic kidney disease with heart failure and stage 1 through stage 4 chronic kidney disease, or unspecified chronic kidney disease; I50.32 Chronic diastolic (congestive) heart failure; E11.22 Type 2 diabetes mellitus with diabetic chronic kidney disease; N18.3 Chronic kidney disease, stage 3 (moderate); C67.9 Malignant neoplasm of bladder, unspecified; E03.9 Hypothyroidism, unspecified; E78.5 Hyperlipidemia, unspecified; J44.9 Chronic obstructive pulmonary disease, unspecified; G20 Parkinson's disease; G47.33 Obstructive sleep apnea (adult) (pediatric); I25.10 Atherosclerotic heart disease of native coronary artery without angina pectoris; K21.9 Gastro-esophageal reflux disease without esophagitis; M79.7 Fibromyalgia; N31.9 Neuromuscular dysfunction of bladder, unspecified; N40.1 Benign prostatic hyperplasia with lower urinary tract symptoms; R33.8 Other retention of urine; E66.01 Morbid (severe) obesity due to excess calories; E53.8 Deficiency of other specified B group vitamins; F32.9 Major depressive disorder, single episode, unspecified; F41.9 Anxiety disorder, unspecified; F03.90 Unspecified dementia, unspecified severity, without behavioral disturbance, psychotic disturbance, mood disturbance, and anxiety; K44.9 Diaphragmatic hernia without obstruction or gangrene; E11.40 Type 2 diabetes mellitus with diabetic neuropathy, unspecified; Z86.73 Personal history of transient ischemic attack (TIA), and cerebral infarction without residual deficits; Z87.891 Personal history of nicotine dependence; Z95.1 Presence of aortocoronary bypass graft; Z68.36 Body mass index [BMI] 36.0-36.9, adult; Z79.82 Long term (current) use of aspirin; I25.2 Old myocardial infarction
CPT/HCPCS: 70450; 70551; 71045; 74177; 80048; 80053; 80061; 80170; 81003; 82948; 83036; 83605; 83690; 84484; 85025; 85027; 85610; 85730; 87040; 87077; 87086; 87186; 87502; 92526 GN; 92610 GN; 93005; 97530 GO; 99281; 99284; 99285; J0692; J1580; J1650; J1815; J2543; J3010; J3370; J7050; J7120